=== PATIENT | female | born 1960 | race Caucasian/White ===

== ENCOUNTER 2018-05-20 21:28 | Inpatient (IN) ==
[2018-05-20] MEDS ORDERED: NS 1,000 ML IV ONE (22:14)
[2018-05-20] MEDS ORDERED: ONDANSETRON 4 MG/2 ML INJECTION IVP ONE (22:14)
[2018-05-20] MEDS ORDERED: IOHEXOL 300mg/ml 100ml INJECTION ONE (22:38)
[2018-05-20] MEDS ORDERED: SALINE FLUSH 10ml SYRINGE ONE (22:38)
--- NOTE | 2018-05-20 22:55 | Emergency Department Report ---
Nausea/Vomiting/Diarrhea HPI - General Chief complaint: Nausea/Vomiting/Diarrhea Stated complaint: vomiting bloating abdominal pain Source: patient Mode of arrival: ambulatory Limitations: no limitations - History of Present Illness HPI Narrative: PT presents with nausea, vomiting and diarrhea for 3 days. Pt was seen here earlier today and had relief with IVF and medication. She took Zofran at home twice today but abd pain and bloating has increased and she has continued to be nauseated. PT reports her had C diff about 2 weeks ago. Unknown fever. She does feel bloated. Pain is non specific to abd MD complaint: nausea, vomiting, diarrhea, abdominal pain Onset (ago): day(s) Location of pain: diffuse - Related Data Home Medications Medication Instructions Recorded Confirmed Citalopram [Celexa] 10 mg PO DAILY 05/20/18 05/20/18 Losartan [Cozaar] 50 mg PO DAILY 05/20/18 05/20/18 Naproxen Sodium [Aleve] 220 mg PO BID PRN 05/20/18 05/20/18 Zantac 1 tab PO PRN PRN 05/20/18 05/20/18 Previous Rx's Medication Instructions Recorded Ondansetron [Zofran Odt] 1 tab PO Q4HR PRN #18 tab 05/20/18 Allergies Allergy/AdvReac Type Severity Reaction Status Date / Time No Known Allergies Allergy Verified 05/20/18 09:14 Review of Systems All systems: reviewed and negative except as stated Constitutional: Reports: as per HPI Gastrointestinal: Reports: as per HPI Genitourinary: Reports: as per HPI PFS Patient Stated Medical History Hypertension Yes Asthma Yes Other GI Yes: diverticulosis, IBS Post Menopausal Yes Surgical History: Knee Surgery, Ear tube - Social History Smoking status: Never smoker Substance use type: does not use Alcohol intake frequency: does not drink Physical Exam - Limitations Limitations: no limitations - General General appearance: alert, in distress - Normal Exams: Head:: Normocephalic without trauma Neck:: Full range of motion Chest/Respirations:: Clear all gasca, with good airflow, and symmetry bilaterally Cardiovascular:: Regular rate and rhythm, without murmur or gallop, Pulses 2+ all extremities, capillary refill, <2 seconds all extremities Musculoskeletal:: No tenderness, or deformity noted, good range of motion, all extremities Integumentary:: No rashes Neurological:: Patient is alert, and oriented, cranial nerves, motor/sensory/ cerebellar, exams w/o gross deficits, to observation Psychiatric:: Patient exhibits, appropriate attention, emotion and affect - Abdominal Exam Abdominal exam: Present: soft, distention, hyperactive bowel sounds. Absent: tenderness Course Vital Signs Temperature 98.4 F 05/20/18 21:35 Pulse Rate 103 H 05/20/18 21:35 Respiratory Rate 18 05/20/18 21:35 Blood Pressure 139/79 05/20/18 21:35 Pulse Oximetry 96 05/20/18 21:35 Temperature 98.4 F 05/20/18 21:35 Pulse Rate 94 05/21/18 00:31 Respiratory Rate 18 05/21/18 00:31 Blood Pressure 138/66 05/21/18 00:05 Pulse Oximetry 99 05/21/18 00:31 Nausea/Vomiting/Diarrhea - MDM Narrative Medical decision making narrative: CT report reveals SBO with possible ischemia. Dr Walden notified and asked for hospitalist to admit. NG placed with minimal result. Dr Walden at bedside. Hospitalist will admit - Differential Diagnosis Likely: food poisoning, gastroenteritis, clostridium difficile infection, drug- induced nausea and vomiting, dehydration - Lab Data Attestation: I reviewed the patient's lab results. Result diagrams: 05/20/18 22:06 05/20/18 22:06 Lab Results 05/20/18 05/20/18 05/20/18 Range/Units 21:33 22:06 22:06 WBC 7.4 D (4.5-11.0) T/MM3 RBC 5.02 (4.00-5.20) M/MM3 Hgb 14.7 (12-16) GM/DL Hct 42.4 (36-46) % MCV 84.5 (80-100) UM3 MCH 29.3 (26-34) UUG MCHC 34.7 (31-37) GM/DL RDW Std Deviation 39.4 (36.9-50.2) FL Plt Count 265 (130-400) T/MM3 MPV 9.5 (9.4-12.4) UM3 Immature Gran % (Auto) 0.0 (0.0-0.5) % Neut % (Auto) 77.7 H (33-66) % Lymph % (Auto) 14.8 L (23-45) % [place] % (Auto) 7.1 (0-9.0) % Eos % (Auto) 0.3 (0-4) % Baso % (Auto) 0.1 (0-2) % Neut # (Auto) 5.7 (1.8-7.7) T/MM3 Lymph # (Auto) 1.1 (1-4.8) T/MM3 [place] # (Auto) 0.5 (0-0.8) T/MM3 Eos # (Auto) 0.0 (0-0.5) T/MM3 Baso # (Auto) 0.0 (0-0.2) T/MM3 Abs Immat Gran (auto) 0.00 (0.00-0.03) T/MM3 Turbidity < 20 (0-20) Sodium 141 (136-146) MEQ/L Potassium 4.0 (3.6-5) MEQ/L Chloride 107 (98-107) MEQ/L Carbon Dioxide 22 (22-30) MEQ/L Anion Gap 12 (5-15) meq/L BUN 10.0 (7-17) MG/DL Creatinine 0.7 (0.7-1.2) mg/dL Estimated Creat Clear Not performed GFR Calculation 86 (>60) mL/min BUN/Creatinine Ratio 14 (6-26) RATIO Glucose 142 H (65-110) MG/DL Calculated Osmolality 272 (261-280) MOSM/KG Calcium 9.2 (8.4-10.2) MG/DL Total Bilirubin 1.10 (0.20-1.30) MG/DL Icterus Index < 2 (0-7) AST 21 (14-36) U/L ALT 17 (1-35) U/L Alkaline Phosphatase 99 (38-126) U/L Total Protein 7.7 (6.3-8.2) g/dL Albumin 4.6 (3.5-5.0) g/dL Globulin 3.1 (2.4-3.6) G/DL Albumin/Globulin Ratio 1.5 (1.1-2.2) RATIO Lipase 76 (23-300) U/L Specimen Hemolysis < 15 (0-25) Ur Collection Type Urine, void-cc/notcc Urine Color Yellow (YELLOW) Urine Clarity Clear Urine pH 5.5 (5.0-8.0) Ur Specific [place] >=1.030 H (1.015-1.025) Urine Protein Trace A (NEGATIVE) Urine Glucose (UA) Negative (NEGATIVE) Urine Ketones 1+ A (NEGATIVE) Urine Occult Blood 3+ A (NEGATIVE) Urine Nitrate Negative (NEGATIVE) Urine Bilirubin 2+ A (NEGATIVE) Urine Urobilinogen 0.2 (NORMAL) EU/DL Ur Leukocyte Esterase Negative (NEGATIVE) Urine RBC 3-5 H (0-3) /HPF Urine WBC 3-5 (0-5) /HPF Urine Bacteria None seen (NEGATIVE) Ur Culture Indicated? Cult not indicated - Radiology Data Attestation: I reviewed the patient's radiology results. Disposition Clinical Impression: Small bowel obstruction Disposition: [address] [facility] Acute Care Condition: Improved Prescriptions: No Action Naproxen Sodium [Aleve] 220 mg PO BID PRN PRN Reason: Pain Citalopram [Celexa] 10 mg PO DAILY Losartan [Cozaar] 50 mg PO DAILY Zantac 1 tab PO PRN PRN PRN Reason: Prn Orders Ondansetron [Zofran Odt] 1 tab PO Q4HR PRN #18 tab PRN Reason: Nausea Referrals: Shay Lawler DO [Primary Care Provider] - Time of Disposition: 00:44 - Seen By: midlevel
[2018-05-20] MEDS ORDERED: BENZOCAINE 20% SPRAY 0.5 ML MM ONE (23:54)
--- NOTE | 2018-05-21 00:51 | History & Physical Report ---
History of Present Illness Date: 05/21/18 Chief complaint: abd pain n/v/d HPI: 58-year-old female who has presented to the er for the second time today with similar symptoms of nausea vomiting diarrhea. Became ill Talha, seen earlier today treated recently for presumptive gastroenteritis provided some nausea medicine. She was nauseated at home but the meds home didn't help and so she came back. Here a ct abdomen was performed that was interpreted by the [facility] reader as small bowel obstruction. i did speak with dr. kelsey who first glance did not think this was likely a small bowel obstruction. apparently the patient's recently had c. difficile he was treated for. She has been caring for him with loose stools/bowel incontinence so has been exposed herself. She denies recent antibiotics. 4. Review of Systems All systems PM: 10-point ROS was reviewed, no additional remarkable complaints except Past Medical History Medical History Updates: HTN. irritable bowel Surgical History: Knee Surgery, Ear tube Family History: No Significant Family History - Social History Smoking status: Never smoker Medications Home Medications Medication Instructions Recorded Confirmed Type Citalopram [Celexa] 10 mg PO DAILY 05/20/18 05/21/18 History Losartan [Cozaar] 50 mg PO DAILY 05/20/18 05/21/18 History Naproxen Sodium [Aleve] 220 mg PO BID PRN 05/20/18 05/21/18 History Ondansetron [Zofran Odt] 1 tab PO Q4HR PRN #18 tab 05/20/18 05/21/18 Rx Zantac 1 tab PO PRN PRN 05/20/18 05/21/18 History Allergies Allergy/AdvReac Type Severity Reaction Status Date / Time No Known Allergies Allergy Verified 05/20/18 09:14 Exam Vital Signs: Temperature 98.4 F 05/20/18 21:35 Pulse Rate 94 05/21/18 00:31 Respiratory Rate 18 05/21/18 00:31 Blood Pressure 138/66 05/21/18 00:05 Pulse Oximetry 99 05/21/18 00:31 Height/Weight/BMI: Height 1.65 m Weight 88 kg Comments: alert looks mildly ill NG in place lungs CTA CV reg s m abd soft quiet BS non tender extr no edema Results - Labs CBC & Chem 7: 05/21/18 05:41 05/21/18 05:41 - Imaging and Cardiology CT scan - abdomen Additional comments: please refer to reports - prelim ?SBO though Dr Kelsey's interp may be different than [facility] Assessment and Plan (1) Diarrhea Current visit: Yes Status: Acute Assessment and Plan: 1. Diarrhea n/v with findings on CT Abd not normal. Clinically sounds like gastroenteritis, surgery is visiting with patient (Dr Kelsey) and will provide opinion. With 's hx recently of c diff, will presume this is related and treat with IV flagyl for now. Could consider add cipro if c diff toxin is negative. Lactate pending, IV fluids ordered 2. HTN - PRN IV meds if needed. DVT Prophylaxis: SCD's, Lovenox Resuscitation Status: Full Code - Physician Narrative Physician: Caryn Sow MD Narrative: Date: 05/21/18 Time: 1:15 Dr. Cheek's note reviewed. Mrs. Doe interviewed and examined. CC: Diarrhea, nausea/vomiting HPI: Mirela is a 58-year-old female with history of irritable bowel syndrome reports who reports feeling bloated and having an episode of diarrhea (in excess of usual IBS sx) 2 days prior to admission followed by multiple episodes of watery diarrhea with mild nausea. She reports continued bloating yesterday with mild generalized abdominal discomfort which worsened when she stood or moved around. Abdominal discomfort/pain was constant and non-crampy. She had no bloody diarrhea and describes fecal urgency. She was seen in the emergency room yesterday morning where labs were unremarkable; she was discharged with Zofran. She was able to maintain intake of liquids early in the day yesterday but has not had any solid food for approximately 2 days. Yesterday evening she developed flushing and diaphoresis with worsening nausea followed by emesis despite Zofran. She represented to the emergency room due to concern that she was becoming dehydrated. CT of the abdomen was obtained demonstrating thickening of the small bowel loops and possible partial small bowel obstruction. White count was slightly higher than it had been earlier in the day and she was admitted for management. IV Flagyl was initiated due to history of her being treated for C. difficile colitis approximately 2 weeks earlier. The patient denies recent antibiotic use personally and denies recent travel. NG tube placed in the ER. PH/SH/FH: agree with that recorded above by Dr. Cheek with additions of chronic neutropenia, no history of illicit drug use and only rare social alcohol use. Prior knee surgery was a left ACL repair. Her mother recently of stroke and father of Alzheimer's disease. Patient's primary care physician is Dr. Shay Lawler, she would like her daughter Betsy to be her alternate decision-maker and she is a full code. ROS: 10 point review notable only for increased stress in the recent past related to her 's illness and mother's ; intermittent diarrhea/ constipation with IBS, increased fatigue recently. Remainder of ROS negative or as per history of present illness. EXAM: General-NAD, fatigued-appearing female, fluent speech. 98.2, 119 (typically heart rate within normal limits), 22 with oxygen saturation 98% on room air, 172 /96 HEENT-PERRL, EOMI without nystagmus, conjunctiva clear, sclera anicteric, conjugate gaze, facial structures symmetric, oropharynx clear, neck supple and without adenopathy Lungs-respirations nonlabored, good airflow, breath sounds clear Cardiac-regular rhythm, S1-S2 Abd-soft, mild generalized discomfort without guarding on palpation, NG to low intermittent suction Ext-without edema Skin-without generalized rash or wounds Neuro-Cranial nerves 3-12 intact, motor tone/power grossly intact, sensation intact to light touch 4 extremities. Psych-calm, cooperative, pleasant DATA: Initial labs as above; liver enzymes unremarkable. Lipase 76. Lactic acid 0.8-0.7, procalcitonin nondetectable. Repeat labs this a.m. essentially unchanged. Urinalysis with +1 ketones, +3 occult blood, +2 bilirubin, and increased specific gravity-all new findings from UA earlier in the day. CT abdomen and pelvis reviewed by myself demonstrating multiple dilated loops of small bowel with thickened moss. Gastrografin upper GI/small bowel follow-through this morning with rapid transit of contrast and evidence of contrast in the rectum at 30 minutes. GI panel negative for tested pathogens. A/P: Gastroenteritis/enteritis Diarrhea Nausea/vomiting Abdominal pain Dehydration Hypertension IBS Chronic neutropenia Mrs. Doe hospitalized with persistent/escalating GI symptoms without identified infectious cause or obstruction. Bowel loops are clearly abnormal on CT with thickening and some component of dilatation. Formal reading of CT this afternoon raises question of possible inflammatory bowel disease and further endoscopic testing may be necessary. At present continue hydration, antiemetics , and pain medications if needed. C. difficile unlikely given negative PCR and normal white count; continue metronidazole with addition of Cipro for infectious colitis at present. Check fecal leukocytes. NG tube discontinued following Gastrografin study; plans discussed with Dr. Kelsey. Hospital Course Summary Disclaimer: The visit summary below is not to be considered part of the above Progress Note.
[2018-05-21] MEDS ORDERED: MORPHINE SULFATE 4mg INJECTION IVP PRN (01:11)
[2018-05-21] MEDS ORDERED: ONDANSETRON 4 MG/2 ML INJECTION IVP PRN (01:11)
[2018-05-21] MEDS ORDERED: MetroNIDAZOLE PB 500 MG/100 ML BAG IV SCH ×3 (01:11→09:00)
[2018-05-21 01:13] VITALS: BMI 33.1
[2018-05-21] MEDS: D5-1/2NS 1,000 ML IV SCH ×2 (01:50→14:03)
[2018-05-21] MEDS: ENOXAPARIN 40 MG/0.4 ML INJECTION SQ SCH (08:31)
[2018-05-21] MEDS ORDERED: DIATRIZOATE MEGLUMINE/SOD. (66%/10%) 120ml SOLN ONE (11:16)
--- NOTE | 2018-05-21 13:10 | CT Scan Report ---
Indication: abd pain and bloating PROCEDURE: CT abdomen pelvis w con: Encounter: Initial Comparison: None Technique: Axial CT images were performed through the abdomen and pelvis after the administration of intravenous contrast. Coronal and sagittal two-dimensional reformats. Automated Exposure Control and Iterative Reconstruction dose reducing techniques were utilized. Contrast: Omnipaque 300 100 mL Findings: The lung bases are grossly clear. The liver is unremarkable. The gallbladder is mildly distended. The spleen, pancreas and adrenal glands are within normal limits. Parapelvic cysts in the kidneys. No abdominal or pelvic lymphadenopathy. There are multiple fluid-filled thick-walled mildly dilated loops of small bowel seen in the right lower quadrant. Small bowel dilatation up to 3.5 cm in diameter. Wall thickening extends to the region of the terminal ileum. Proximal small bowel is relatively decompressed. No free air. Small amount of free pelvic fluid. Fluid-filled nondilated colon. The appendix is normal caliber. Bone windows show no acute findings. Impression: Thick-walled inflamed loops of small bowel in the mid to distal ileum with at least a partial small bowel obstruction. Findings could relate to small bowel ischemia or infectious or inflammatory bowel disease such as Crohn's. There is no pneumatosis or portal venous gas. Surgical consultation is recommended. There is a preliminary report by [employer]. .
--- NOTE | 2018-05-21 14:39 | XRay Report ---
Indication: poss SBO PROCEDURE: XR KUB w upright: Encounter: Initial Comparison: CT abdomen and pelvis dated May 20, 2018 Findings: Nasogastric tube in place looping within the stomach fundus with the tip projecting over the second portion of the duodenum. There are dilated small bowel loops with air-fluid levels in the right abdomen measuring up to 5 cm in diameter. There is scattered colonic gas present. Small amount of contrast material within the bladder. Impression: 1. Nasogastric tube tip projects over the second portion of the duodenum. 2. Continued findings of a moderate grade small bowel obstruction. .
[2018-05-21] MEDS: LOSARTAN 50 MG TABLET PO SCH (16:54)
[2018-05-21] MEDS: MetroNIDAZOLE PB 500 MG/100 ML BAG IV SCH (21:14)
[2018-05-22] MEDS: D5-1/2NS 1,000 ML IV SCH ×3 (01:40→19:10)
--- NOTE | 2018-05-22 07:48 | General Surgery Consult Note ---
Consult date: 05/22/18 Attending Physician: Caryn Sow MD [facility] Patient Stated Medical History Hypertension Yes Asthma Yes Other GI Yes: diverticulosis, IBS Other Hematologic Yes: low WBC typically Clostridium Difficile Yes: poss c diff now Post Menopausal Yes Medical History Updates: HTN. irritable bowel Surgical History: Knee Surgery, Ear tube - Social History Smoking status: Never smoker Substance use type: does not use Alcohol intake frequency: does not drink Current residence: Apartment/Private Home Medications Home Medications Medication Instructions Recorded Confirmed Type Citalopram [Celexa] 10 mg PO DAILY 05/20/18 05/21/18 History Losartan [Cozaar] 50 mg PO DAILY 05/20/18 05/21/18 History Naproxen Sodium [Aleve] 220 mg PO BID PRN 05/20/18 05/21/18 History Ondansetron [Zofran Odt] 1 tab PO Q4HR PRN #18 tab 05/20/18 05/21/18 Rx Zantac 1 tab PO PRN PRN 05/20/18 05/21/18 History Allergies Allergy/AdvReac Type Severity Reaction Status Date / Time No Known Allergies Allergy Verified 05/20/18 09:14 Review of Systems 10-point ROS: negative except for HPI and the following: - Gastrointestinal Gastrointestinal: Present: nausea, diarrhea - Vital Signs Last Vital Signs Temp 98.2 F 05/22/18 04:11 Pulse 73 05/22/18 04:11 Resp 14 05/22/18 04:11 BP 116/71 05/22/18 04:11 Pulse Ox 96 05/22/18 04:11 - Laboratory Result Diagrams: 05/22/18 04:19 05/22/18 04:19 General Surgery Results - Results Labs: 05/22/18 04:19 05/22/18 04:19
--- NOTE | 2018-05-22 08:44 | Consultation ---
DATE OF CONSULTATION 05/21/2018 FINDINGS Mrs. Doe is a 58-year-old female whom I was contacted about this evening in regards to an abnormal CT scan revealing possible small bowel obstruction. Upon questioning Corin, she informs me that she has not been feeling well throughout the last couple of weeks. Mrs. Doe informed me that her has been hospitalized at [facility] in [place] and was treated for Clostridium difficile recently. She states that she has been of course seeing her frequently at the hospital. She informs me that she began to develop loose stools/diarrhea and was concerned that she may have Clostridium difficile and had actually saw her primary care physician who had sent home a stool specimen container. The patient states that her diarrhea then began to improve for a short period of time. Patient states that this week, however, her diarrhea has returned. Over the last couple of days, the patient states that she has had nothing but liquidy stools. She states that when she stands up , she was feeling "not well". Upon questioning the patient, she denied history for severe abdominal pain but stated that her abdomen has felt quite distended as if she is "". Again, she denied significant abdominal pain upon questioning. The patient was seen earlier today the emergency room and was apparently given some IV fluids and discharged to home. She re-presented this evening and a CT scan was obtained which, as stated above, revealed evidence for possible small bowel obstruction. PAST MEDICAL HISTORY Chronic Illness/System disorders: 1. History for hypertension. PAST SURGICAL HISTORY Knee surgery/ACL repair. MEDICATIONS 1. Celexa. 2. Cozaar. 3. Aleve. 4. Zantac. For complete doses and frequencies please refer to EMR. ALLERGIES NO KNOWN DRUG ALLERGIES. SOCIAL HISTORY The patient drinks alcohol socially. Denies tobacco use. FAMILY HISTORY Her father from Alzheimer's. Her mother recently as result of a massive stroke. REVIEW OF SYSTEMS Complete review of systems was undertaken with the patient and was essentially negative except as stated above in HPI and Past Medical History for constitutional, HEENT, cardiac, respiratory, GI, , musculoskeletal, hematology /oncology, endocrine, and psychiatric. PHYSICAL EXAMINATION GENERAL: Mrs. Doe is a 58-year-old female who does not appear to be in acute distress. VITALS: Temperature 98.6, pulse 94, respirations 18, blood pressure 138/66, SaO2 99% on room air. HEENT: Normocephalic. Pupils are equally round and react to light and accommodation. NECK: Supple without lymphadenopathy. CHEST: Clear to auscultation bilaterally. HEART: Regular rate and rhythm. Normal S1, S2, without gallops, murmurs or clicks. ABDOMEN: Visualization of the abdomen does reveal it to be slightly distended in its overall appearance. Palpation of the abdomen did not elicit any element of tenderness throughout. There was no evidence for guarding or rebound. No evidence for hepatosplenomegaly or other abnormal masses. EXTREMITIES: Without clubbing, cyanosis, or edema. NEURO: Cranial nerves II-XII grossly intact. Patient without focal, motor, or sensory deficits. LABORATORY/RADIOGRAPHIC EVALUATION Patient had a CBC today and her white count was 7.4. Hemoglobin was 14.7. CMP was obtained and found to be essentially within normal limits. Glucose was slightly elevated at 142. Lipase was normal at 76. UA was obtained and found to be abnormal in the fact that she was found to have 3+ blood. She was nitrate negative. Culture was not indicated. Radiographically, she did have a CT scan of her abdomen and pelvis. On her scanogram, I could see air throughout her colon and her rectum not indicative for that of a complete small bowel obstruction. One could see, however, some dilated loops of bowel on her scanogram. I did review her CT scan personally and she does have some dilation of her small bowel and some thickening of her small bowel. One can see a component of some mesenteric fat stranding within the right lower quadrant of her abdomen. There is air throughout her colon as well as some liquidy stool. There was a component of some trace ascites. I did not feel that radiographically her CT scan was consistent with that of a complete small bowel obstruction. The rad report stated that there was a small bowel obstruction with a transition point present in the distal ileum with some adjacent fat stranding and was concerned about possible ischemia. ASSESSMENT 58-year-old female with several day history of diarrhea, prior exposure to Clostridium difficile, who presents with abnormal CT scan revealing a small bowel dilatation and air throughout colon. Patient without acute surgical abdomen upon physical examination. PLAN I do not feel that we are dealing with that of an acute surgical process. I will request that the hospitalist admit the patient. I would recommend the patient be treated empirically for Clostridium difficile colitis given her clinical history. I would recommend obtaining stool cultures after next stool. NG was placed this evening and not much was obtained from the nasogastric tube. Tomorrow, we will go ahead and repeat KUB and upright and repeat lab. Tomorrow will likely proceed with Gastrografin small bowel follow-through to document the patient is not dealing with that of a small bowel obstruction as is my intuition. Will continue to follow closely. DAPHNED
[2018-05-22] MEDS: ENOXAPARIN 40 MG/0.4 ML INJECTION SQ SCH (08:57)
[2018-05-22] MEDS: MetroNIDAZOLE PB 500 MG/100 ML BAG IV SCH ×2 (08:57→20:05)
--- NOTE | 2018-05-22 08:58 | XRay Report ---
Indication: rule out small bowel obstruction PROCEDURE: XR small bowel follow through: Encounter: Initial Comparison: KUB from the same date Findings: Water-soluble contrast was administered via the patient's nasogastric tube and followed with serial abdominal radiographs. This shows progression to the rectum on the 30 minute image. There is continued small bowel dilatation up to 3.5 cm in diameter with increased number of mucosal folds and folds thickening seen in the right lower quadrant small bowel in the area of inflammation seen by CT. Impression: Rapid intestinal transit of less than 30 minutes. No evidence of obstruction. There is a preliminary report by [email or web address]. .
[2018-05-22] MEDS: CITALOPRAM 10 MG TABLET PO SCH (09:02)
[2018-05-22] MEDS: LOSARTAN 50 MG TABLET PO SCH (09:02)
--- NOTE | 2018-05-22 09:07 | Progress Note ---
DATE 05/21/2018 FINDINGS Mrs. Doe was seen this morning on rounds. She states that she did have a liquidy stool this morning. States that her abdomen is "feeling better". Her main complaint is that of the nasogastric tube. OBJECTIVE VITALS: Temperature 98.2, pulse 119, respirations 22, blood pressure 172/96, SaO2 98% on room air. HEENT: Normocephalic. Pupils are equally round and react to light and accommodation. CHEST: Clear to auscultation bilaterally. HEART: Regular rate and rhythm. Normal S1, S2, without gallops, murmurs or clicks. ABDOMEN: Visualization of the abdomen reveals it to be slightly less distended in its overall appearance this morning. Palpation of the abdomen revealed it to be soft and completely nontender. Patient did not have any element of guarding or rebound. LABORATORY/RADIOGRAPHIC REVIEW The patient had a repeat CBC this morning and her white count is stable at 7.4. Hemoglobin is slightly down at 13.1 which most likely is dilutional in nature following IV fluids. BMP obtained and found to be without marked abnormalities. Plasma lactate was obtained and procalcitonin levels were normal. Radiographically, she did have a KUB and upright obtained. One can see some dilated loops of small bowel as well as air within her colon. There does appear to be some air within her rectum. Patient did have a stool culture obtained which was negative; specifically, her Clostridium difficile toxin was negative. ASSESSMENT 58-year-old female with presentation of diarrhea, single episode of vomiting, abdominal distention, abnormal CT scan revealing evidence for dilatation of small bowel and mesenteric fat stranding noted within the right midabdomen. Question viral gastroenteritis. Patient does not appear to have acute surgical abdomen nor clinical history indicative for complete small bowel obstruction. PLAN Gastrografin small bowel follow-through per NG. Will go ahead and place some Gastrografin through her NG today and proceed with a small bowel series. If the contrast does progress through her small bowel and into her colon as anticipated, will go ahead and DC NG and begin the patient on some liquids sparingly. Will continue to follow the patient closely. [facility]OSPITALTopher
--- NOTE | 2018-05-22 10:48 | Progress Note ---
- Date 05/22/18 Subjective: Mirela continues to have diffuse abdominal pain and significant bloating. She has only seen subtle improvement since being admitted. Her pain is worse with movement and better if she lies flat. She continues to have diarrhea. She denies nausea. She denies feeling dizzy, short of breath. No chest pain. Objective Vital signs: Temperature 96.3 F L 05/22/18 08:00 Pulse Rate 84 05/22/18 08:00 Respiratory Rate 16 05/22/18 08:00 Blood Pressure 131/71 05/22/18 08:00 Pulse Oximetry 95 05/22/18 08:00 Height/Weight/BMI: Height 1.65 m Weight 88.8 kg Body Mass Index 33.1 - Constitutional Present: no acute distress, well nourished, well developed - Routine HEENT Exam Head: Present: normocephalic Eye: Present: PERRL. Absent: conjunctival icterus, scleral injection ENT: Present: mucous membranes moist, oropharynx clear - Routine Respiratory Exam Present: CTA bilaterally - Routine Cardiovascular Exam Present: RRR, S1, S2 - Routine Abdominal Exam Present: normoactive bowel sounds, tenderness (diffuse), distended - Routine Extremities Exam Present: no edema - Routine Musculoskeletal Exam Musculoskeletal: Present: no clubbing or cyanosis - Routine Skin Exam Present: intact, dry, warm - Routine Neurological Exam Present: alert, oriented X3, CN II-XII intact, moving all extremities, vision grossly intact, hearing grossly intact, normal speech. Absent: sensory deficit , motor deficit, altered mental status, facial asymmetry - Routine Psychiatric Exam Present: normal affect, normal thought process, cooperative Results - Labs CBC & Chem 7: 05/22/18 04:19 05/22/18 04:19 Assessment and Plan Assessment and Plan: Assessment Gastroenteritis/enteritis Partial small bowel obstruction secondary to thick-walled inflamed loops of small bowel in the mid to distal ileum Diarrhea Nausea/vomiting - resolved Abdominal pain Dehydration Hypertension IBS Chronic neutropenia Plan Discussed with Dr. Walden - inflammatory bowel disease not suspected. Trial of Solu-Medrol to reduce bowel inflammation; 125 mg x1 then 62.5 mg TID. Continue Cipro and metronidazole. Start Protonix. Reduce rate of IVF, pt feels she will be able to increase oral fluids. CBC, BMP stable. DVT Prophylaxis: SCD's, Lovenox GI Prophylaxis: Protonix Resuscitation Status: Full Code - Time spent with patient Time with patient PN: 25 minutes - Physician Narrative Physician: Kadeem Burnett MD Narrative: Date: 05/22/18 Time: 1210 Have independently interviewed & examined pt. Chart reviewed. Case discussed with CM & my BACK SHOE OPERATOR. Care plan developed with my supervision; agree with above. Continues to have significant ab pain, worse with positional changes. Not passing much flatus-loose stool when tries to expel flatus. Ab diffusely feels full and bloated. Burping. Would like to try liquids. No f/c (but does feel very warm, despite room temperature cool). Denies SOA or congestion. No chest pain. Lungs: Clear CV: regular AB: Soft, mild distention, BS decreased. No rebound. Skin: warm, moist. MSE: awake alert appropriate Plan: Continue with antibiotics for coverage. With continue ab pain/bloating not responding to bowel rest/IVF/Antibiotics, will start [id number] 125mg x1 then 62.5mg q 8 hr. Increase diet as able. Monitor lab and symptoms. Hospital Course Summary Disclaimer: The visit summary below is not to be considered part of the above Progress Note. Hospital Course: 05/21/18 1. Diarrhea n/v with findings on CT Abd not normal. Clinically sounds like gastroenteritis, surgery is visiting with patient (Dr Walden) and will provide opinion. With 's hx recently of c diff, will presume this is related and treat with IV flagyl for now. Could consider add cipro if c diff toxin is negative. Lactate pending, IV fluids ordered 2. HTN - PRN IV meds if needed. Mrs. Doe hospitalized with persistent/escalating GI symptoms without identified infectious cause or obstruction. Bowel loops are clearly abnormal on CT with thickening and some component of dilatation. Formal reading of CT this afternoon raises question of possible inflammatory bowel disease and further endoscopic testing may be necessary. At present continue hydration, antiemetics , and pain medications if needed. C. difficile unlikely given negative PCR and normal white count; continue metronidazole with addition of Cipro for infectious colitis at present. Check fecal leukocytes. NG tube discontinued following Gastrografin study; plans discussed with Dr. Walden. 05/22/[address] Walden - inflammatory bowel disease not suspected. Trial of Solu-Medrol to reduce bowel inflammation; 125 mg x1 then 62.5 mg TID. Continue Cipro and metronidazole. Start Protonix. Reduce rate of IVF, pt feels she will be able to increase oral fluids. BC, BMP stable.
[2018-05-22] MEDS ORDERED: METHYLPREDNISOLONE SOD SUCC 125mg/2ml INJECTION IVP ONE (10:51)
[2018-05-22] MEDS ORDERED: SIMETHICONE 125 MG CHEWABLE TABLET PO PRN (11:35)
[2018-05-22] MEDS: PANTOPRAZOLE 40 MG INJECTION IVP SCH (11:41)
[2018-05-22] MEDS: METHYLPREDNISOLONE SOD SUCC 125mg/2ml INJECTION IVP SCH (17:07)
[2018-05-22] MEDS ORDERED: ACETAMINOPHEN 325 MG TABLET PO PRN (23:24)
[2018-05-23] MEDS: METHYLPREDNISOLONE SOD SUCC 125mg/2ml INJECTION IVP SCH ×3 (00:27→16:51)
--- NOTE | 2018-05-23 08:29 | Progress Note ---
DATE: 05/22/2018 FINDINGS I have seen Mrs. Doe a couple times now during the course of the day. This evening she states that she is feeling better. The patient states that she was able to get up and go to the bathroom/urinate without having loose stools. This is the first time today that she has been up without having loose stools. The patient states that she still notices some tenderness within her abdomen especially upon "coughing." Overall, however, she states that she is improving. VITALS: Afebrile. Normotensive. Last recorded vitals include temperature 98.5 , pulse 78, respirations 16, blood pressure 139/71, SAO2 95% room air. HEENT: Normocephalic. Pupils are equally round and react to light and accommodation. CHEST: Clear to auscultation bilaterally. HEART: Regular rate and rhythm. Normal S1 and S2 without gallops, murmurs or clicks. ABDOMEN: Palpation of the abdomen does reveal some minimal tenderness within the lower abdomen/right lower quadrant. There was however no evidence for guarding or rebound tenderness. LABORATORY/RADIOGRAPHIC/REVIEW OF PATIENT'S CHART From a laboratory standpoint the patient did have a CBC today and her white count remains stable at 5.5. Hemoglobin is stable at 12.8. BMP obtained and found to be without marked abnormalities. I did review note performed by hospitalist earlier today. I have reviewed dictated report from our radiologist from the CT scan performed over the weekend. CT scan did reveal some thick-walled inflamed loops of small bowel involving the mid and distal ileum with an associated partial small bowel obstruction. I reviewed dictated report from small bowel followthrough obtained over the weekend. There was a rapid intestinal transit time of 30 minutes. No evidence for obstruction was noted. ASSESSMENT 58-year-old female with history of diarrhea, single episode of vomiting, abnormal CT scan revealing inflammatory changes of small bowel. Exact etiology somewhat unclear. I do not feel we are dealing with inflammatory bowel disease/ Crohn's. PLAN I agree with current treatment of this patient. She is being treated empirically with antibiotics consisting of Cipro and Flagyl. I did discuss earlier today with the hospitalist system about placing her empirically on steroids as well. Steroids have been initiated. Hopefully the patient's symptomatology will continue to improve and she will be able to be discharged hopefully tomorrow. Her is to have coronary bypass grafting surgery on Tuesday. JOSE ELIAS
--- NOTE | 2018-05-23 09:03 | General Surgery Progress Note ---
Subjective Narrative: She is feeling somewhat better this morning, the diarrhea has "stopped", although there have not been any normal formed stools. Abd pain is much improved from admission, denies nausea. Denies chest pain, SOA. - Vital Signs Last Vital Signs Temp 97.6 F 05/23/18 07:36 Pulse 75 05/23/18 07:36 Resp 14 05/23/18 07:36 BP 133/80 05/23/18 07:36 Pulse Ox 94 05/23/18 07:36 - Laboratory Result Diagrams: 05/23/18 03:37 05/23/18 03:37 - Abnormal Exam Abdominal: hypoactive bowel sounds (very rare) - Normal Exam General: awake, alert, oriented Cardiovascular: regular rhythm, regular rate Respiratory: clear bilaterally, no labored breathing Abdominal: soft, no guarding, non-tender Psychiatric: normal affect Neurological: CN 2-12 grossly intact Assessment and Plan (1) Diarrhea Current Visit: Yes Status: Acute Qualifiers: Diarrhea type: unspecified type Qualified Code(s): R19.7 - Diarrhea, unspecified (2) HTN (hypertension) Current Visit: Yes Status: Chronic Qualifiers: Hypertension type: essential hypertension Qualified Code(s): I10 - Essential (primary) hypertension (3) Small bowel obstruction Current Visit: Yes Status: Ruled-out Plan: Generally doing better this morning, diarrhea has "stopped" but there have not been any formed stools yet. Labs are OK, but glucose a little elevated, although she is on steroids. Continue to follow, await Dr. Bradshaw recommendations. Hospital Course Summary Disclaimer: The visit summary below is not to be considered part of the above Progress Note. Hospital Course: 05/21/18 1. Diarrhea n/v with findings on CT Abd not normal. Clinically sounds like gastroenteritis, surgery is visiting with patient (Dr Walden) and will provide opinion. With 's hx recently of c diff, will presume this is related and treat with IV flagyl for now. Could consider add cipro if c diff toxin is negative. Lactate pending, IV fluids ordered 2. HTN - PRN IV meds if needed. Mrs. Doe hospitalized with persistent/escalating GI symptoms without identified infectious cause or obstruction. Bowel loops are clearly abnormal on CT with thickening and some component of dilatation. Formal reading of CT this afternoon raises question of possible inflammatory bowel disease and further endoscopic testing may be necessary. At present continue hydration, antiemetics , and pain medications if needed. C. difficile unlikely given negative PCR and normal white count; continue metronidazole with addition of Cipro for infectious colitis at present. Check fecal leukocytes. NG tube discontinued following Gastrografin study; plans discussed with Dr. Walden. 05/22/[address] Walden - inflammatory bowel disease not suspected. Trial of Solu-Medrol to reduce bowel inflammation; 125 mg x1 then 62.5 mg TID. Continue Cipro and metronidazole. Start Protonix. Reduce rate of IVF, pt feels she will be able to increase oral fluids. BC, BMP stable.
[2018-05-23] MEDS: ENOXAPARIN 40 MG/0.4 ML INJECTION SQ SCH (09:05)
[2018-05-23] MEDS: PANTOPRAZOLE 40 MG INJECTION IVP SCH (09:05)
[2018-05-23] MEDS: CITALOPRAM 10 MG TABLET PO SCH (09:06)
[2018-05-23] MEDS: LOSARTAN 50 MG TABLET PO SCH (09:06)
[2018-05-23] MEDS: MetroNIDAZOLE PB 500 MG/100 ML BAG IV SCH (09:06)
--- NOTE | 2018-05-23 09:55 | Progress Note ---
- Date 05/23/18 Subjective: F/U: Gastroenteritis/enteritis, Partial small bowel obstruction secondary to thick-walled inflamed loops of small bowel in the mid to distal ileum Feeling better today. Ab pain much decreased-able to move in bed and get up without excruciating pain. Not having diarrhea; flatus, but no stool. No nausea. Tolerating oral intake. No f/c. Breathing well. Urine stable. Objective Vital signs: Temperature 97.6 F 05/23/18 07:36 Pulse Rate 75 05/23/18 07:36 Respiratory Rate 14 05/23/18 07:36 Blood Pressure 133/80 05/23/18 07:36 Pulse Oximetry 94 05/23/18 07:36 Height/Weight/BMI: Height 1.65 m Weight 88.3 kg Body Mass Index 33.1 - Constitutional Present: well nourished, well developed, average body habitus, cooperative - Routine HEENT Exam Head: Present: normocephalic, atraumatic Eye: Present: EOMI, PERRL ENT: Present: mucous membranes moist - Routine Respiratory Exam Present: CTA bilaterally. Absent: rales, respiratory distress, rhonchi, wheezes , crackles - Routine Cardiovascular Exam Present: RRR, no murmur - Routine Abdominal Exam Present: soft, non distended, non tender. Absent: normoactive bowel sounds ( Decreased, but present), guarding - Routine Extremities Exam Present: no edema, pulses intact. Absent: cyanosis, clubbing - Routine Musculoskeletal Exam Musculoskeletal: Present: no clubbing or cyanosis - Routine Skin Exam Present: dry, warm - Routine Neurological Exam Present: alert, oriented X3, CN II-XII intact, moving all extremities, vision grossly intact, hearing grossly intact. Absent: motor deficit, altered mental status Results - Labs CBC & Chem 7: 05/23/18 03:37 05/23/18 03:37 Assessment and Plan (1) Diarrhea Current visit: Yes Status: Acute Assessment and Plan: Assessment Gastroenteritis/enteritis Partial small bowel obstruction secondary to thick-walled inflamed loops of small bowel in the mid to distal ileum Diarrhea Nausea/vomiting - resolved Abdominal pain Dehydration Hypertension IBS Chronic neutropenia Hyperglycemia secondary to steroids Obesity with BMI 32.4 Plan Clinically improving-ab pain decreasing, oral intake improving. Will continue with ciprofloxacin and metronidazole. Continue Solu-Medrol 62.5mg TID, adding Benadryl 25mg po prn as pt notes nasal congestion with Solu-Medrol. Will change to Prednisone 40mg po daily starting tomorrow. Can discontinue IVF when current bag done. Encourage ambulation to increase strength. Recheck CBC in am due to enteritis. 1735 Reassessed patient this evening. Improving. Tolerating oral intake (trying to take it easy with food). No nausea. Passing stool. Ambulating well. Expresses desire to go home ( hospitalized in [place] and will be having CABG tomorrow). With improvement of symptoms, feel this is reasonable. Diet as tolerated. Continue Prednisone 40mg daily with breakfast for 4 days, then decrease to 20mg daily with breakfast for 5 days. May use Benadryl 25mg as needed to help tolerability of Prednisone. Ciprofloxacin 500mg BID for 5 days, Metronidazole 500mg BID for 5 days. F/U with Dr Lawler in 1 week, sooner as problems occur. Consider GI evaluation if not improving. See orders for details. DVT Prophylaxis: SCD's, Lovenox GI Prophylaxis: Protonix Resuscitation Status: Full Code - Time spent with patient Time with patient PN: 25 minutes - Physician Narrative Physician: Kadeem Burnett MD Narrative: Date: 05/23/18 Time: 951 Hospital Course Summary Disclaimer: The visit summary below is not to be considered part of the above Progress Note. Hospital Course: 05/21/18 1. Diarrhea n/v with findings on CT Abd not normal. Clinically sounds like gastroenteritis, surgery is visiting with patient (Dr Walden) and will provide opinion. With 's hx recently of c diff, will presume this is related and treat with IV flagyl for now. Could consider add cipro if c diff toxin is negative. Lactate pending, IV fluids ordered 2. HTN - PRN IV meds if needed. Mrs. Doe hospitalized with persistent/escalating GI symptoms without identified infectious cause or obstruction. Bowel loops are clearly abnormal on CT with thickening and some component of dilatation. Formal reading of CT this afternoon raises question of possible inflammatory bowel disease and further endoscopic testing may be necessary. At present continue hydration, antiemetics , and pain medications if needed. C. difficile unlikely given negative PCR and normal white count; continue metronidazole with addition of Cipro for infectious colitis at present. Check fecal leukocytes. NG tube discontinued following Gastrografin study; plans discussed with Dr. Walden. 05/22/[address] Walden - inflammatory bowel disease not suspected. Trial of Solu-Medrol to reduce bowel inflammation; 125 mg x1 then 62.5 mg TID. Continue Cipro and metronidazole. Start Protonix. Reduce rate of IVF, pt feels she will be able to increase oral fluids. BC, BMP stable. With continued symptoms and need for continued IVF and IV medications, will change admission status to inpatient. 05/23/18 Clinically improving-ab pain decreasing, oral intake improving. Will continue with ciprofloxacin and metronidazole. Continue Solu-Medrol 62.5mg TID, adding Benadryl 25mg po prn as pt notes nasal congestion with Solu-Medrol. Will change to Prednisone 40mg po daily starting tomorrow. Can discontinue IVF when current bag done. Encourage ambulation to increase strength. 1735 Reassessed patient this evening. Improving. Tolerating oral intake (trying to take it easy with food). No nausea. Passing stool. Ambulating well. Expresses desire to go home ( hospitalized in [place] and will be having CABG tomorrow). With improvement of symptoms, feel this is reasonable. Diet as tolerated. Continue Prednisone 40mg daily with breakfast for 4 days, then decrease to 20mg daily with breakfast for 5 days. May use Benadryl 25mg as needed to help tolerability of Prednisone. Ciprofloxacin 500mg BID for 5 days, Metronidazole 500mg BID for 5 days. F/U with Dr Lawler in 1 week, sooner as problems occur. Consider GI evaluation if not improving. See orders for details.
[2018-05-23] MEDS ORDERED: DiphenhydrAMINE 25 MG CAPSULE PO PRN (10:02)
[2018-05-23 11:56] VITALS: RESP 16
[2018-05-23] MEDS: D5-1/2NS 1,000 ML IV SCH (13:11)
[2018-05-23 15:12] VITALS: BP 133/81; PULSE 86; TEMP 97.2; O2SAT 93
[2018-05-23] MEDS ORDERED: DiphenhydrAMINE 50 MG/ML INJECTION IVP SCH (17:00)
--- NOTE | 2018-05-23 18:04 | Discharge Summary ---
Discharge Information Date of admission: 05/21/18 00:44 Anticipated date of discharge: 05/23/18 Attending Physician: Kadeem Burnett MD Primary care physician: Shay Lawler DO Consults: Physician Consult: Sukh Walden Reason For Exam: bowel issues - Discharge Diagnosis (1) Small bowel obstruction Status: Ruled-out (2) Gastroenteritis Status: Acute (3) Diarrhea Status: Acute Problems Reviewed?: Yes Discharge diagnosis Gastroenteritis/enteritis Partial small bowel obstruction secondary to thick-walled inflamed loops of small bowel in the mid to distal ileum Associated conditions and complications Diarrhea Nausea/vomiting - resolved Abdominal pain Dehydration Hypertension IBS Chronic neutropenia Hyperglycemia secondary to steroids Obesity with BMI 32.4 - Laboratory Labs: Admit Lab 05/20/18 22:06 WBC 7.4 D Hgb 14.7 Hct 42.4 MCV 84.5 Plt Count 265 Neut % (Auto) 77.7 H Lymph % (Auto) 14.8 L [place] % (Auto) 7.1 Eos % (Auto) 0.3 Baso % (Auto) 0.1 Admit Lab 05/20/18 22:06 Sodium 141 Potassium 4.0 Chloride 107 Carbon Dioxide 22 Anion Gap 12 BUN 10.0 Creatinine 0.7 GFR Calculation 86 BUN/Creatinine Ratio 14 Glucose 142 H Calculated Osmolality 272 Calcium 9.2 Total Bilirubin 1.10 AST 21 ALT 17 Alkaline Phosphatase 99 Total Protein 7.7 Albumin 4.6 Globulin 3.1 Albumin/Globulin Ratio 1.5 Lipase 76 Fecal Leukocytes 05/21/18 13:40 Stool for White Cells Positive UA Tests 05/20/18 21:33 Urine Color Yellow Urine Clarity Clear Urine pH 5.5 Ur Specific [place] >=1.030 H Urine Protein Trace A Urine Glucose (UA) Negative Urine Ketones 1+ A Urine Occult Blood 3+ A Urine Nitrate Negative Urine Bilirubin 2+ A Urine Urobilinogen 0.2 Ur Leukocyte Esterase Negative Urine RBC 3-5 H Urine WBC 3-5 Urine Bacteria None seen 05/23/18 03:37 05/23/18 03:37 - Radiology Radiology: Date of Exam: 05/20/18 Type of Exam: CT abdomen pelvis w con Findings: The lung bases are grossly clear. The liver is unremarkable. The gallbladder is mildly distended. The spleen, pancreas and adrenal glands are within normal limits. Parapelvic cysts in the kidneys. No abdominal or pelvic lymphadenopathy. There are multiple fluid-filled thick-walled mildly dilated loops of small bowel seen in the right lower quadrant. Small bowel dilatation up to 3.5 cm in diameter. Wall thickening extends to the region of the terminal ileum. Proximal small bowel is relatively decompressed. No free air. Small amount of free pelvic fluid. Fluid-filled nondilated colon. The appendix is normal caliber. Bone windows show no acute findings. Impression: Thick-walled inflamed loops of small bowel in the mid to distal ileum with at least a partial small bowel obstruction. Findings could relate to small bowel ischemia or infectious or inflammatory bowel disease such as Crohn' s. There is no pneumatosis or portal venous gas. Surgical consultation is recommended. - Date of Exam: 05/21/18 Type of Exam: XR KUB w upright Findings: Nasogastric tube in place looping within the stomach fundus with the tip projecting over the second portion of the duodenum. There are dilated small bowel loops with air-fluid levels in the right abdomen measuring up to 5 cm in diameter. There is scattered colonic gas present. Small amount of contrast material within the bladder. Impression: 1. Nasogastric tube tip projects over the second portion of the duodenum. 2. Continued findings of a moderate grade small bowel obstruction. -- Date of Exam: 05/21/18 Type of Exam: XR small bowel follow through Findings: Water-soluble contrast was administered via the patient's nasogastric tube and followed with serial abdominal radiographs. This shows progression to the rectum on the 30 minute image. There is continued small bowel dilatation up to 3.5 cm in diameter with increased number of mucosal folds and folds thickening seen in the right lower quadrant small bowel in the area of inflammation seen by CT. Impression: Rapid intestinal transit of less than 30 minutes. No evidence of obstruction. --- History of Present Illness HPI: 58-year-old female who has presented to the er for the second time today with similar symptoms of nausea vomiting diarrhea. Became ill Talha, seen earlier today treated recently for presumptive gastroenteritis provided some nausea medicine. She was nauseated at home but the meds home didn't help and so she came back. Here a ct abdomen was performed that was interpreted by the [facility] reader as small bowel obstruction. I did speak with Dr. Walden who first glance did not think this was likely a small bowel obstruction. Apparently the patient's recently had C. difficile he was treated for. She has been caring for him with loose stools/bowel incontinence so has been exposed herself. She denies recent antibiotics. For complete details of the H&P refer to that document. Objective Vital signs: Temperature 97.2 F 05/23/18 15:11 Pulse Rate 86 05/23/18 15:11 Respiratory Rate 16 05/23/18 15:11 Blood Pressure 133/81 05/23/18 15:11 Pulse Oximetry 93 05/23/18 15:11 Height/Weight/BMI: Height 1.65 m Weight 88.3 kg Body Mass Index 33.1 Hospital Course This is a general summary of the patient's hospital course. For more details refer to the complete medical record. Hospital course: 05/21/18 1. Diarrhea n/v with findings on CT Abd not normal. Clinically sounds like gastroenteritis, surgery is visiting with patient (Dr Walden) and will provide opinion. With 's hx recently of c diff, will presume this is related and treat with IV flagyl for now. Could consider add cipro if c diff toxin is negative. Lactate pending, IV fluids ordered 2. HTN - PRN IV meds if needed. Mrs. Doe hospitalized with persistent/escalating GI symptoms without identified infectious cause or obstruction. Bowel loops are clearly abnormal on CT with thickening and some component of dilatation. Formal reading of CT this afternoon raises question of possible inflammatory bowel disease and further endoscopic testing may be necessary. At present continue hydration, antiemetics , and pain medications if needed. C. difficile unlikely given negative PCR and normal white count; continue metronidazole with addition of Cipro for infectious colitis at present. Check fecal leukocytes. NG tube discontinued following Gastrografin study; plans discussed with Dr. Walden. 05/22/[address] Walden - inflammatory bowel disease not suspected. Trial of Solu-Medrol to reduce bowel inflammation; 125 mg x1 then 62.5 mg TID. Continue Cipro and metronidazole. Start Protonix. Reduce rate of IVF, pt feels she will be able to increase oral fluids. BC, BMP stable. 05/23/18 Clinically improving-ab pain decreasing, oral intake improving. Will continue with ciprofloxacin and metronidazole. Continue Solu-Medrol 62.5mg TID, adding Benadryl 25mg po prn as pt notes nasal congestion with Solu-Medrol. Will change to Prednisone 40mg po daily starting tomorrow. Can discontinue IVF when current bag done. Encourage ambulation to increase strength. [id number] Reassessed patient this evening. Improving. Tolerating oral intake (trying to take it easy with food). No nausea. Passing stool. Ambulating well. Expresses desire to go home ( hospitalized in [place] and will be having CABG tomorrow). With improvement of symptoms, feel this is reasonable. Diet as tolerated. Continue Prednisone 40mg daily with breakfast for 4 days, then decrease to 20mg daily with breakfast for 5 days. May use Benadryl 25mg as needed to help tolerability of Prednisone. Ciprofloxacin 500mg BID for 5 days, Metronidazole 500mg BID for 5 days. F/U with Dr Lawler in 1 week, sooner as problems occur. Consider GI evaluation if not improving. See orders for details. Discharge Plan - Discharge Disposition Discharge Date: 05/23/18 Disposition: 01 Discharged Home, Self-Care *Condition: Improved Reason For Visit (Visit label in EMR): possible SBO, diarrhea - Discharge Medications *Discharge Medications: New RX: DiphenhydrAMINE [Benadryl] 25 mg PO Q6H PRN cap PRN Reason: itch, nasal congestion RX: Ciprofloxacin [Cipro 500 mg] 500 mg PO BID #10 tab RX: PredniSONE [Deltasone 20 mg] 40 mg PO WB #13 tab RX: MetroNIDAZOLE [Flagyl] 500 mg PO BID #10 tab Continue RX: Naproxen Sodium [Aleve] 220 mg PO BID PRN PRN Reason: Pain RX: Citalopram [Celexa] 10 mg PO DAILY RX: Losartan [Cozaar] 50 mg PO DAILY Zantac 1 tab PO PRN PRN PRN Reason: Prn Orders RX: Ondansetron [Zofran Odt] 1 tab PO Q4HR PRN #18 tab PRN Reason: Nausea - Discharge Packet/Instructions *Diet: Sarita diet, increase as able. Plenty of fluids. Yogurt may be helpful. *Activity: Increase as tolerated. *Pain Management/Treatment: Continue prior home pain medications. *Wound Care: N/A Additional Instructions: Use metronidazole and ciprofloxacin twice a day. Use Prednisone 40mg (2 tablets) daily with breakfast for 4 days, then decrease to 20mg (1 tablet) daily with breakfast for 5 days, then stop. *Expected Signs/Symptoms: Improvement of abdominal pain. Improvement of bowel function. *Notify Physician if: Temp > 100.4. Intractable abdominal pain. Intractable nausea/vomiting or diarhea. Any worrisome symptom. *During Business Hours Contact: Dr Lawler *After Business Hours Contact: Call [facility] and have Dr Lawler contacted. *Pending Lab/Results: No Pending Lab - Referrals/Follow Up *Referrals/Follow Up: Shay Lawler DO [Primary Care Provider] - 1 Week (Hospital follow up. ) - Patient Handouts - Dismissal Complete Discharge Instructions are:: Complete Physician Narrative - Narrative Physician: Kadeem Burnett MD Attestation Narrative: Date: 05/23/18 Time: 1800 I have independently interviewed and examined patient prior to discharge. See my progress note for details. Medically stable for discharge to home.
[2018-05-24] MEDS ORDERED: PredniSONE 20 MG TABLET PO SCH (08:00)
== END 2018-05-23 18:35 | disposition home or self-care (01) | DRG 392 ==
LOC: ED 21:28 → EDHOLD 05-21 00:44 → SUATTDRO 05-21 00:44 → SRG 05-21 01:00
PROVIDERS: ADMIT Pediatrics; ATTEND Hospitalist